=== PATIENT | male | born 1990 | race Caucasian/White ===

== ENCOUNTER 2016-12-21 08:06 | Inpatient (IN) | payer BC, OTHER ==
[~2016-12-21] VITALS: Ht 185.4 cm; Wt 65.8 kg
[~2016-12-21 08:06] MED LIST: Folic Acid PO
[2016-12-22 00:45] VITALS: BP 112/58
[2016-12-22] MEDS ORDERED: IBUPROFEN 600 MG TABLET PO PRN (01:15)
[2016-12-22] MEDS ORDERED: LORAZEPAM 1 MG TABLET PO PRN ×6 (01:15→12:15)
[2016-12-22] MEDS ORDERED: ACETAMINOPHEN 325 MG TABLET PO PRN (01:15)
[2016-12-22] MEDS ORDERED: MAGNESIUM HYDROXIDE 30 ML LIQUID UDC PO PRN (01:15)
[2016-12-22] MEDS ORDERED: diphenhydrAMINE 50 MG CAPSULE PO PRN (01:15)
[2016-12-22] MEDS ORDERED: ONDANSETRON ODT 4 MG TAB.RAPDIS SL PRN (01:15)
[2016-12-22] MEDS ORDERED: MAG HYDROX/AL HYDROX/SIMETH 30 ML LIQUID UDC PO PRN (01:15)
[2016-12-22] MEDS ORDERED: HYDROXYZINE PAMOATE 25 MG CAPSULE PO PRN (01:15)
[2016-12-22] MEDS ORDERED: BUPRENORPHINE HCL 2 MG TAB.SUBL SL PRN (01:15)
[2016-12-22] MEDS ORDERED: CLONIDINE HCL 0.1 MG TABLET PO PRN (01:15)
[2016-12-22] MEDS ORDERED: METHOCARBAMOL 750 MG TABLET PO PRN (01:15)
[2016-12-22] MEDS ORDERED: LOPERAMIDE HCL 2 MG CAPSULE PO PRN ×2 (01:15)
[2016-12-22 01:33] LABS: BASOPHILS % (AUTO) 0.4 % (0.0-2.0); EOSINOPHILS # (AUTO) 0.1 K/uL (0.0-0.7); EOSINOPHILS % (AUTO) 1.2 % (0.0-7.0); HEMATOCRIT 40.8 % (40-50); HEMOGLOBIN 13.5 G/DL (14.0-18.0); LYMPHOCYTES % (AUTO) 23.9 % (20.5-51.5); MEAN CORPUSCULAR HEMOGLOBIN 27.4 UUG (27.0-31.0); MEAN CORPUSCULAR HGB CONC 33 g/dL (32.0-37.0); MEAN CORPUSCULAR VOLUME 83.1 FL (82.0-92.0); MONOCYTES # (AUTO) 0.5 K/UL (0.1-1.30); MONOCYTES % (AUTO) 6.6 % (0.0-11.0); NEUTROPHILS # (AUTO) 5.7 K/UL (1.8-8.9); NEUTROPHILS % (AUTO) 67.9 % (38.5-71.5); PLATELET COUNT (AUTO) 180 K/UL (150-450); RED BLOOD CELL COUNT(AUTO) 4.91 MIL/UL (4.7-6.1); WHITE BLOOD COUNT (AUTO) 8.3 K/UL (4.0-11.2)
[2016-12-22] MEDS ORDERED: LORAZEPAM 2 MG/1 ML VIAL IM PRN (01:45)
[2016-12-22 02:02] LABS: ETHANOL < 3 MG/DL (0-0)
[2016-12-22 02:07] LABS: ALANINE AMINOTRANSFERASE 15 U/L (16-63); ALKALINE PHOSPHATASE 89 U/L (50-136); ASPARTATE AMINOTRANSFERASE 15 U/L (15-37); BILIRUBIN,TOTAL 0.7 mg/dL (0.2-1.0); CARBON DIOXIDE 32 mmol/L (21-32); CHLORIDE 101 mmol/L (98-107); GLUCOSE 101 mg/dL (74-106); MAGNESIUM 2.1 mg/dL (1.8-2.4); POTASSIUM 3.6 mmol/L (3.5-5.1); TOTAL PROTEIN, SERUM 7.6 g/dL (6.4-8.2); UREA NITROGEN, BLOOD 10 mg/dL (7-18)
[2016-12-22 02:14] LABS: THYROID STIMULATING HORMONE 1.145 mIU/mL (0.358-3.740)
[2016-12-22 04:04] VITALS: BP 115/64
[2016-12-22 08:00] VITALS: BP 106/65
[2016-12-22] MEDS: MULTIVITAMINS,THERAPEUTIC TABLET PO SCH (09:00)
[2016-12-22] MEDS ORDERED: TUBERCULIN,PURIF.PROT.DERIV. 5 TU/0.1 ML TEST ID ONE ×2 (09:00→13:00)
[2016-12-22 12:00] VITALS: BP 114/71
[2016-12-22 12:51] LABS: *AMPHETAMINE, URINE POSITIVE (NEGATIVE); *BARBITURATE, URINE POSITIVE (NEGATIVE); *CANNABINOID, URINE NEGATIVE (NEGATIVE); *COCCAINE, URINE NEGATIVE (NEGATIVE); *OPIATE, URINE POSITIVE (NEGATIVE); *PHENCYCLIDINE SCREEN,URINE NEGATIVE (NEGATIVE)
[2016-12-22 16:00] VITALS: BP 108/62
[2016-12-22 20:20] VITALS: BP 115/78
[2016-12-22] MEDS: GABAPENTIN 300 MG CAPSULE PO SCH (20:37)
[2016-12-23] VITALS: BP 113/68
[2016-12-23 04:00] VITALS: BP 109/62
[2016-12-23 08:00] VITALS: BP 109/71
[2016-12-23] MEDS: MULTIVITAMINS,THERAPEUTIC TABLET PO SCH (08:58)
[2016-12-23] MEDS: LORAZEPAM 1 MG TABLET PO SCH ×4 (08:58→22:06)
[2016-12-23] MEDS: BUPRENORPHINE HCL 2 MG TAB.SUBL SL SCH ×4 (08:59→22:07)
[2016-12-23 11:07] LABS: HEPATITIS B SURFACE AG Negative (Negative)
[2016-12-23 12:00] VITALS: BP 100/61
[2016-12-23] MEDS: GABAPENTIN 300 MG CAPSULE PO SCH ×2 (15:00→22:06)
[2016-12-23 16:00] VITALS: BP 103/59
[2016-12-23 20:00] VITALS: BP 119/65
[2016-12-24] VITALS: BP 115/72
[2016-12-24 04:00] VITALS: BP 99/47
[2016-12-24 08:35] VITALS: BP 104/68
[2016-12-24] MEDS: LORAZEPAM 1 MG TABLET PO SCH ×3 (08:40→20:49)
[2016-12-24] MEDS: MULTIVITAMINS,THERAPEUTIC TABLET PO SCH (08:40)
[2016-12-24] MEDS: GABAPENTIN 300 MG CAPSULE PO SCH ×3 (08:40→20:49)
[2016-12-24] MEDS: BUPRENORPHINE HCL 2 MG TAB.SUBL SL SCH ×3 (08:41→20:50)
[2016-12-24 13:31] VITALS: BP 119/66
[2016-12-24 17:01] VITALS: BP 112/74
[2016-12-24 20:00] VITALS: BP 108/73
[2016-12-25] VITALS: BP 91/56
[2016-12-25 08:09] VITALS: BP 118/85
[2016-12-25] MEDS: LORAZEPAM 1 MG TABLET PO SCH ×4 (08:39→20:22)
[2016-12-25] MEDS: MULTIVITAMINS,THERAPEUTIC TABLET PO SCH (08:39)
[2016-12-25] MEDS: GABAPENTIN 300 MG CAPSULE PO SCH ×3 (08:39→20:21)
[2016-12-25] MEDS ORDERED: BUPRENORPHINE HCL 2 MG TAB.SUBL SL SCH (09:00)
[2016-12-25 13:00] VITALS: BP 109/64
[2016-12-25] MEDS: BUPRENORPHINE HCL 2 MG TAB.SUBL SL SCH ×2 (14:56→20:21)
[2016-12-25 17:00] VITALS: BP 112/68
[2016-12-25] MEDS: IBUPROFEN 400 MG TABLET PO PRN (17:36)
[2016-12-25 20:00] VITALS: BP 117/74
[2016-12-26 08:00] VITALS: BP 110/77
[2016-12-26] MEDS: GABAPENTIN 300 MG CAPSULE PO SCH ×3 (08:16→20:43)
[2016-12-26] MEDS: BUPRENORPHINE HCL 2 MG TAB.SUBL SL SCH ×3 (08:16→20:43)
[2016-12-26] MEDS: MULTIVITAMINS,THERAPEUTIC TABLET PO SCH (08:17)
[2016-12-26] MEDS: LORAZEPAM 1 MG TABLET PO SCH ×3 (08:17→20:42)
[2016-12-26] MEDS: IBUPROFEN 400 MG TABLET PO PRN ×2 (08:22→20:10)
[2016-12-26 12:00] VITALS: BP 107/70
[2016-12-26 16:00] VITALS: BP 113/72
[2016-12-26 20:00] VITALS: BP 130/89
[2016-12-27] MEDS ORDERED: BENZOCAINE ORAL CARE 12 ML BOTTLE MM PRN (00:15)
[2016-12-27] MEDS ORDERED: KETOROLAC TROMETHAMINE 30 MG INJ IM PRN (00:15)
[2016-12-27 08:00] VITALS: BP 109/75
[2016-12-27] MEDS: LORAZEPAM 1 MG TABLET PO SCH ×2 (08:49→21:21)
[2016-12-27] MEDS: MULTIVITAMINS,THERAPEUTIC TABLET PO SCH (08:49)
[2016-12-27] MEDS: GABAPENTIN 300 MG CAPSULE PO SCH ×3 (08:49→21:20)
[2016-12-27] MEDS ORDERED: BUPRENORPHINE HCL 2 MG TAB.SUBL SL SCH (09:00)
[2016-12-27] MEDS ORDERED: IBUPROFEN 600 MG TABLET PO PRN (10:00)
[2016-12-27 12:00] VITALS: BP 100/72
[2016-12-27 16:00] VITALS: BP 101/63
[2016-12-27 20:00] VITALS: BP 129/73
[2016-12-27] MEDS ORDERED: GABAPENTIN 300 MG CAPSULE PO SCH (21:00)
[2016-12-27] MEDS: BUPRENORPHINE HCL 2 MG TAB.SUBL SL SCH (21:20)
[2016-12-27] MEDS: BACLOFEN 10 MG TABLET PO SCH (21:21)
[2016-12-27] MEDS: CLONIDINE HCL 0.1 MG TABLET PO SCH (21:21)
[2016-12-28] VITALS: BP 111/66
[2016-12-28 04:00] VITALS: BP 117/73
[2016-12-28 08:00] VITALS: BP 101/56
[2016-12-28] MEDS: CLONIDINE HCL 0.1 MG TABLET PO SCH (08:32)
[2016-12-28] MEDS: BACLOFEN 10 MG TABLET PO SCH ×2 (08:33→14:35)
[2016-12-28] MEDS: MULTIVITAMINS,THERAPEUTIC TABLET PO SCH (08:33)
[2016-12-28] MEDS: BUPRENORPHINE HCL 2 MG TAB.SUBL SL SCH (08:34)
[2016-12-28] MEDS: GABAPENTIN 300 MG CAPSULE PO SCH ×2 (08:34→14:29)
[2016-12-28] MEDS ORDERED: LORAZEPAM 1 MG TABLET PO SCH (09:00)
[2016-12-28 12:00] VITALS: BP 108/69
== END 2016-12-28 14:42 | disposition left against medical advice (07) | DRG 894 ==
LOC: SRC 23:27
PROVIDERS: ADMIT Internal Medicine; ATTEND Internal Medicine
PROC: HZ2ZZZZ Detoxification Services for Substance Abuse Treatment (ICD-10-PCS; principal; 2016-12-21)
PROC: HZ31ZZZ Individual Counseling for Substance Abuse Treatment, Behavioral (ICD-10-PCS; 2016-12-24)
DX: F11.23 Opioid dependence with withdrawal (principal); F13.230 Sedative, hypnotic or anxiolytic dependence with withdrawal, uncomplicated; Z59.0 Homelessness; F15.10 Other stimulant abuse, uncomplicated; F17.210 Nicotine dependence, cigarettes, uncomplicated; D64.9 Anemia, unspecified; K08.89 Other specified disorders of teeth and supporting structures
CPT/HCPCS: 36415; 80307; 80324; 80345; 80346; 80361; 83735; 84443; 85025; 86580; 86705; 86803; 87340; 87806; A4663; A9150; G0480; J1885